=== PATIENT | female | born 1965 | race Two or more races ===

== ENCOUNTER 2024-05-12 02:33 | Emergency (ER) | payer MEDICAID, SELFPAY ==
[2024-05-12 02:33] VITALS: BMI 31.1
[2024-05-12 02:45] VITALS: BP 129/75; PULSE 62; RESP 18; TEMP 36.6; O2SAT 99
--- NOTE | 2024-05-12 03:06 | PD.EDRME ---
Rapid Medical Screening Exam RME Arrival date/time: 05/12/24 02:33 58 year old female present to ED for c/o abd pain for 3 days. I have greeted and performed a focused initial assessment of this patient. A comprehensive ED assessment and evaluation of the patient, analysis of all test results, and completion of the medical decision making process will be conducted by additional ED providers. Chief Complaint: Abdominal Pain Vital signs: Vital Signs Temperature 97.9 F 05/12/24 02:45 Pulse Rate 62 05/12/24 02:45 Respiratory Rate 18 05/12/24 02:45 Blood Pressure 129/75 05/12/24 02:45 Pulse Oximetry (%) 99 05/12/24 02:45 Oxygen Delivery Method Room Air 05/12/24 02:45
[2024-05-12] MEDS: Milk Of Magnesia Susp 30 ML UDC PO (03:24)
[2024-05-12 03:40] LABS: Basophils # (Auto) 0.1 Thou/mm3 (0.0-0.2); Basophils % (Auto) 1 % (0-2.5); Eosinophils # (Auto) 0.1 Thou/mm3 (0.0-0.5); Eosinophils % (Auto) 2 % (0-10); Hematocrit 36.9 % (36.0-46.0); Immature Granulocytes % (Auto) 0 % (0-0); Immature Granulocytes Auto 0.03 Thou/mm3 (0.00-0.00); Lymphocytes # (Auto) 3.5 Thou/mm3 (1.0-4.8); Lymphocytes % (Auto) 50 % (10-50); Mean Corpuscular HGB Conc 32.5 g/dl (31.0-37.0); Mean Corpuscular Hemoglobin 26.8 pg (25.0-35.0); Mean Corpuscular Volume 82 fL (80-100); Monocytes # (Auto) 0.4 Thou/mm3 (0.0-0.8); Monocytes % (Auto) 5 % (0-12); Neutrophils % (Auto) 42 % (37-80); Nucleated Red Blood Cell % 0 /100 WBC (0); Platelet Count 368 Thou/mm3 (140-440); RDW Standard Deviation 42.4 fL (36.4-46.3); Red Blood Count 4.48 Miln/mm3 (4.00-5.20); White Blood Count 7.1 Thou/mm3 (3.6-11.0)
[2024-05-12 03:40] LABS: Collection Type, Urine Voided; RBC,Urine 0 /hpf (0-3); Squamous Epithelial Cell,Urine 0 /hpf (0-5)
[2024-05-12 03:42] LABS: Bilirubin,Urine Negative (Negative); Blood,Urine Negative (Negative); Clarity,Urine Clear (Clear/Hazy); Color,Urine Colorless (Lt Yel-Yel); Culture Indicated,Urine Not Indicated; Glucose, Urine Negative (Negative); Ketones,Urine Negative (Negative); Leukocyte Esterase,Urine Negative (Negative); Nitrite,Urine Negative (Negative); Protein,Urine Negative (Neg - Trace); Specific Gravity,Urine 1.008 (1.001-1.035); Urobilinogen,Urine Negative mg/dL (0.0-1.0); WBC,Urine 3 /hpf (0-5)
--- NOTE | 2024-05-12 03:51 | XR_ITS ---
Examination: CT abdomen with intravenous contrast CT pelvis with intravenous contrast 2-D coronal reconstructions 2-D sagittal reconstructions Date and time of exam:May 12, 2024 at 0515 hrs. Indications: Abdominal pain constipation beginning 5 days ago. CTDI: vol (mGy) 9.21 DLP: (mGycm) 496 Technique: Multiple axial sections of the abdomen and pelvis have been obtained. 64 slice high-resolution scanner used. 3 mm axial sections have been obtained, post intravenous injection 60 cc [id number] 2-D sagittal, coronal reconstructions obtained. Low dose protocols were performed. One or more of the following dose reduction techniques were used; automated exposure control, adjustment of the mA and/or KV according to patient size, use of iterative reconstruction technique. Findings: Multiple hepatic cysts No biliary tract dilatation Spleen is not enlarged Contracted gallbladder. No pancreatic mass or pancreatic edema. No renal or ureteral calculi, no hydronephrosis Aorta normal size. Normal appendix No bowel obstruction No pelvic mass Urinary bladder intact Moderate osteopenia Impression: No acute process in the abdomen or pelvis
[2024-05-12 04:01] LABS: Alanine Aminotransferase 14 U/L (10-49); Albumin/Globulin Ratio 1.6 (1.2-2.2); Alkaline Phosphatase 77 U/L (46-116); Anion Gap 6 (7-16); Aspartate Amino Transferase 16 U/L (0-34); BUN/Creatinine Ratio 20 Ratio (12-20); Bilirubin,Total 0.4 mg/dL (0.3-1.2); Blood Urea Nitrogen 16 mg/dL (9-23); Calcium 9.5 mg/dL (8.3-10.6); Calcium (Corrected) 9.5 mg/dL (8.5-10.1); Carbon Dioxide 30.7 mMol/L (20.0-31.0); Chloride 104 mMol/L (98-107); Creatinine (Component) 0.8 mg/dL (0.6-1.3); Estimated Creatinine Clearance 75.5 mL/min (>60); Globulin 3.1 gm/dL (2.3-3.5); Glucose 100 mg/dL (74-106); Lipase 53 U/L (12-53); Osmolality,Calculated 282 (275-295); Potassium 3.8 mMol/L (3.4-5.1); Sodium 141 mMol/L (136-145); Total Protein 8.1 gm/dL (5.7-8.2); eGFR > 60 See Note
[2024-05-12 04:56] VITALS: BP 132/81; PULSE 60; RESP 16; TEMP 36.7; O2SAT 98
--- NOTE | 2024-05-12 05:00 | PC.NURSE ---
Pt appears in NAD. Resting quietly. States pain is very mild.
--- NOTE | 2024-05-12 05:59 | PRELIM_ITS ---
CT scan of the abdomen and pelvis with intravenous contrast (axial sections with sagittal and coronal reformats) May 12, 2024 at 0515 hoursClinical History: Abdominal pain for 3 days.Comparison: No prior study is available for comparison. Findings:Clear lung bases. Hepatic cysts up to 4 cm. Gallbl adder, spleen, adrenal glands, pancreas and kidneys are unremarkable. The appendix is normal, best se en on image 129. The urinary bladder is normal. No free intraperitoneal air or fluid. There is no adn exal cyst or mass. No acute osseous process. Lumbar spondylosis with posterior disc protrusions at mu ltiple levels.Impression: No acute processes of the abdomen or pelvis. Report Electronically Signed B y: Cristiano Diaz 05/12/2024 5:59:16 AM [EST]
[2024-05-12 06:17] VITALS: BP 124/84; PULSE 61; RESP 18; TEMP 36.7; O2SAT 100
--- NOTE | 2024-05-12 07:15 | PD.EDABDPN ---
ED Abdominal Pain RME/HPI General Chief Complaint: Abdominal Pain Stated complaint: CONSTIPATION X5DAYS Time seen by provider: 05/12/24 03:28 Arrival date/time: 05/12/24 02:33 RME / HPI RME / HPI narrative: 05/12/24 02:33 58 year old female present to ED for c/o abd pain for 3 days. I have greeted and performed a focused initial assessment of this patient. A comprehensive ED assessment and evaluation of the patient, analysis of all test results, and completion of the medical decision making process will be conducted by additional ED providers. DR. RIA WILLIS ED EVALUATION 58 year old female presents to the ED for complaint of constipation for 5 days accompanied by abdominal pain beginning 3 days ago. States pain is located all throughout abdomen, described as aching in sensation, rating as mild-moderate. Reportedly took Purelax at home without improvement, prompting ED visit. Mentioned she is chronically constipated and at baseline has 0-1 bowel movements a day. Denies fevers, chills, nausea, vomiting, or urinary symptoms. Related Data Previous Rx's ?Medication ?Instructions ?Recorded magnesium hydroxide 400 mg/5 mL 20 ml PO TID PRN constipation #355 05/12/24 oral suspension (Milk of Magnesia) mL Allergies Allergy/AdvReac Type Severity Reaction Status Date / Time No Known Allergies Allergy Verified 09/02/23 15:12 Review of Systems Review of Systems Narrative Review of Systems: GEN: No fever, no chills, no weight loss EYES: No discharge, no visual changes, no pain HEENT: No ear pain, no congestion, no sore throat PULM: No shortness of breath, no cough, no congestion CV: No chest pain, no dyspnea on exertion, no palpitations GI: No nausea, no vomiting, no diarrhea, + pain, + constipation : No frequency, no urgency and no dysuria MUSC/SKEL No joint pain, no back pain SKIN: No rash NEURO: No weakness, no headache Past Medical History Past Medical History NEUROLOGIC: Negative Neurological Disorders or Seizures CARDIAC: Negative Cardiac Disorders or Congestive Heart Failure RESPIRATORY: Negative Chronic Obstructive Pulmonary Disease (COPD) or Asthma GASTROINTESTINAL: Negative Gastrointestinal Disorders GENITOURINARY: Negative Genitourinary Disorders or Renal Disease REPRODUCTIVE: Positive Previous Pregnancies MUSCULOSKELETAL: Negative Musculoskeletal Disorders ENDOCRINE: Positive Endocrine Disorders and Hyperthyroidism; Negative Diabetes Mellitus Type 1 or Diabetes Mellitus Type 2 HEMATOLOGIC: Negative Anemia, Sickle Cell Disease or Clotting Problems OTHER HISTORY: Positive Falls; Negative Autoimmune Disease, Blood Transfusions, Blood Transfusion Reaction, Anesthesia Reactions, Clostridium Difficile or Cancer Family History FAMILY HISTORY: Negative Family Cardiac Disorders Surgical History SURGICAL: Positive Lumpectomy and Tubal Ligation; Negative Joint Replacement Social History SMOKING STATUS: Never smoker ED Exam Narrative Physical exam: GENERAL APPEARANCE: Well hydrated, well nourished, in no acute distress. VITALS: All vitals were reviewed and the pulse ox is 100% on room air which is normal according to my interpretation. HEENT: Normocephalic, atramatic, EOMI. Moist oromucosa. No jaundice NECK: Supple. CARDIOVASCULAR: Heart regular without S3-S4 or murmur. No rubs or gallops. LUNGS/CHEST: Clear to auscultation bilaterally. Normal inspection. ABDOMEN: Soft, nontender, with normal bowel sounds. No pulsatile masses. No rebound, rigidity, or guarding. No incarcerated hernia. Normal inspection and palpation. EXTREMITIES: Normal inspection and palpation. SKIN: Warm and dry without rashes. Normal inspection. MUSCULOSKELETAL: Normal inspection. No gross deformity, full ROM all extremities NEURO: Alert and oriented x3. Cranial nerves II through XII grossly intact. PSYCHIATRIC: Normal mood and affect. No psychosis Course Quality Measures none Orders Category Date Time Status CT Screening NOW Care 05/12/24 03:51 Active Insert IV NOW Care 05/12/24 04:[address] abdomen pelvis w con Stat Exams 05/12/24 03:51 Taken CBC Stat Lab 05/12/24 03:20 Completed CMP [Comprehensive Metabolic Panel] Stat Lab 05/12/24 03:20 Completed Lipase Stat Lab 05/12/24 03:20 Completed UA, C/S IF [Urinalysis, C/S if Indicated] Stat Lab 05/12/24 03:23 Completed Urine Culture Stat Lab 05/12/24 03:23 Received Milk Of Magnesia Susp [Mom Susp] Med 05/12/24 03:07 Discontinued 30 ml PO X1 ONE Vital Signs Vital signs: Vital Signs Temperature 97.9 F 05/12/24 02:45 Pulse Rate 62 05/12/24 02:45 Respiratory Rate 18 05/12/24 02:45 Blood Pressure 129/75 05/12/24 02:45 Pulse Oximetry (%) 99 05/12/24 02:45 Oxygen Delivery Method Room Air 05/12/24 02:45 Abdominal Pain MDM MDM Narrative MDM Narrative:: Patient's chief complaint is constipation. She been having that for long time. Her past medical history significant for some sort of thyroid problem but she does not know exactly what. Also history of constipation and liver cyst CBC negative. CMP negative. Lipase negative. UA is negative. CT abdomen and pelvic reviewed by and interpreted by me as follow: No bowel obstruction. No significant constipation. Some stool in the ascending colon but no rectal impaction. No air-fluid level. Normal liver except for cysts. Normal kidneys. Normal pancreas. No free fluid. No free air. Abdominal exam is benign. There is no surgical abdomen at this time. Patient data External records reviewed:: [facility] previous records (I reviewed ED visit 09/02/2023) Clinical information provided by:: patient Social determinants that could affect healthcare access:: none Patient has the following chronic illnesses:: Some sort of thyroid problem, known liver cyst Chronic constipation How is presenting disease/condition affected by chronic disease/condition?: uneffected by Evaluation data The following diagnostics were reviewed and interpreted by me:: lab results and radiology exam(s) Lab and/or radiology exams considered but not ordered:: None Interpretation Summary: Ordering Physician: Date of Service: Procedure(s): Accession Number(s): cc: ~ CT scan of the abdomen and pelvis with intravenous contrast (axial sections with sagittal and coronal reformats) May 12, 2024 at 0515 hours Clinical History: Abdominal pain for 3 days. Comparison: No prior study is available for comparison. Findings: Clear lung bases. Hepatic cysts up to 4 cm. Gallbladder, spleen, adrenal glands, pancreas and kidneys are unremarkable. The appendix is normal, best seen on image 129. The urinary bladder is normal. No free intraperitoneal air or fluid. There is no adnexal cyst or mass. No acute osseous process. Lumbar spondylosis with posterior disc protrusions at multiple levels. Impression: No acute processes of the abdomen or pelvis. Report Electronically Signed By: Cristiano Diaz 05/12/2024 5:59:16 AM [EST] Medications / Prescriptions Medications or Prescriptions considered but not ordered:: None Medication administrations:: Medication Administration History Discontinued Medications Magnesium Hydroxide (Milk Of Magnesia Susp 30 Ml Udc) 30 ml PO X1 ONE; Protocol Stop: 12/17/24 03:08 Last Admin: 05/12/24 03:24 Dose: 30 ml Documented By: CB See above Consultations Consultation(s) initiated? (list below): No Diagnosis Differential diagnosis abdominal pain: abdominal pain, constipation and small bowel obstruction Most likely diagnosis given after review of the tests above:: Constipation Admission Indicated Admission indicated?: not indicated Admission Request Was there a request for admission?: No Disposition Plan Disposition Plan: Discharge Discharge Attestation Discharge Attestation: The patient and all family members were given an opportunity to ask questions and understood the discharge instructions. Discharge instructions specifically effects, indications for sooner follow up or return to the emergency department, and the expected course of current diagnosis. Patient condition: Stable Discharge Plan Plan Patient Disposition: HOME (Self Care) Disposition Comment: Stable for DC Prescriptions/Referrals Prescriptions/Med Rec: New magnesium hydroxide [Milk of Magnesia] 400 mg/5 mL suspension 20 ml PO TID PRN (Reason: constipation) Qty: 355 0RF Referrals: David Angel MD [Primary Care Provider] - In 1 week Problem List Clinical Impression: Constipation Patient/Caregiver Discharge Instructions Education Materials: ED Constipation (Adult) Additional Instructions: Medication as prescribed for constipation. Follow-up with your medical doctor in 3 days. Return to nearest ER if condition worsens or if new symptoms develop especially fever Print Language: Welsh Stand Alone Forms: Sheila Award Info., Patient Portal Info Letter
[2024-05-12 08:00] VITALS: BP 102/62; PULSE 67; RESP 17; TEMP 36.6; O2SAT 98
== END 2024-05-12 08:43 | disposition home or self-care (01) ==
PROVIDERS: Physician Assistant; Emergency Provider Emergency Medicine; PCP Family Medicine
DX: K59.09 Other constipation (principal)
CPT/HCPCS: 36415; 74177; 80053; 81001; 83690; 85025; 87086; 99285; A4649; Q9967; A9270

== ENCOUNTER → 2024-06-25 | Outpatient (CLI) | payer MEDICAID, SELFPAY ==
[2024-06-24 11:42] LABS: Basophils # (Auto) 0.1 Thou/mm3 (0.0-0.2); Basophils % (Auto) 2 % (0-2.5); Eosinophils # (Auto) 0.1 Thou/mm3 (0.0-0.5); Eosinophils % (Auto) 3 % (0-10); Hematocrit 38.3 % (36.0-46.0); Hemoglobin 12.2 g/dL (12.0-16.0); Immature Granulocytes % (Auto) 1 % (0-0); Immature Granulocytes Auto 0.03 Thou/mm3 (0.00-0.00); Lymphocytes # (Auto) 2.5 Thou/mm3 (1.0-4.8); Lymphocytes % (Auto) 51 % (10-50); Mean Corpuscular HGB Conc 31.9 g/dl (31.0-37.0); Mean Corpuscular Hemoglobin 27.2 pg (25.0-35.0); Mean Corpuscular Volume 85 fL (80-100); Monocytes # (Auto) 0.3 Thou/mm3 (0.0-0.8); Monocytes % (Auto) 6 % (0-12); Neutrophils # (Auto) 1.8 Thou/mm3 (1.8-7.7); Neutrophils % (Auto) 37 % (37-80); Nucleated Red Blood Cell % 0 /100 WBC (0); Platelet Count 322 Thou/mm3 (140-440); RDW Standard Deviation 43.7 fL (36.4-46.3); Red Blood Count 4.49 Miln/mm3 (4.00-5.20); White Blood Count 4.8 Thou/mm3 (3.6-11.0)
[2024-06-24 11:59] LABS: Partial Thromboplastin Time 27.1 Seconds (22.0-36.0)
--- NOTE | 2024-06-25 09:30 | XR_ITS ---
Examination: Thyroid sonography complete TECHNIQUE: Grayscale sonographic images thyroid lobes are carful analysis Exam date and time: June 25, 2024 1028 hours INDICATIONS: History left thyroid nodule, 4.6 x 3.6 cm December 16, 2019 FINDINGS: Right thyroid 3.9 x 1.2 x 1.5 cm 7 mm upper pole cyst Left thyroid 5.8 x 3.0 x 3.9 cm Complex vascular lower pole left thyroid mass 4.5 x 3.5 x 4.3 cm IMPRESSION: Recommend repeat biopsy of vascular lower pole left thyroid mass, ultrasound-guided
--- NOTE | 2024-06-25 09:30 | XR_ITS ---
Examination: Ultrasound-guided fine needle percutaneous aspiration thyroid nodule, left thyroid nodule. Thyroid sonography, limited Exam date and time: June 25, 2024 at 1038 hours INDICATIONS: Left thyroid nodule, large in vascular on thyroid sonogram today. Technique: A timeout was completed verifying correct patient, procedure, site, positioning and special equipment if applicable. The patient was placed in supine position for the thyroid fine needle percutaneous aspiration The patient's left neck neck was prepped and draped in sterile fashion. Maximum barrier sterile technique, hand hygiene, ultrasound sterile technique. 1% lidocaine was used to anesthetize the skin and subcutaneous tissues to the patient's right thyroid nodule. Multiple fine needle aspirations were performed and multiple thyroid specimens placed in preservative according to the irm protocol. Specimens appears satisfactory. The attending radiologist was present for the entire procedure. Estimated blood loss 3 cc. The patient tolerated the procedure well and there were no complications. Impression: Successful ultrasound-guided fine-needle percutaneous aspiration thyroid nodule, left thyroid nodule.
== END | disposition home or self-care (01) ==
LOC: SDIM 09:15 → SIRX 10:15
PROVIDERS: Radiology Diagnostic Radiology; PCP Family Medicine
DX: E04.1 Nontoxic single thyroid nodule (principal); Z01.812 Encounter for preprocedural laboratory examination
CPT/HCPCS: 10005; 36415; 76536; 85025; 85610; 85730

== ENCOUNTER → 2024-09-22 | Outpatient (CLI) | payer MEDICAID, SELFPAY ==
[2024-09-21 14:01] LABS: Basophils # (Auto) 0.1 Thou/mm3 (0.0-0.2); Basophils % (Auto) 1 % (0-2.5); Eosinophils # (Auto) 0.1 Thou/mm3 (0.0-0.5); Eosinophils % (Auto) 2 % (0-10); Hematocrit 36.1 % (36.0-46.0); Hemoglobin 11.7 g/dL (12.0-16.0); Immature Granulocytes % (Auto) 1 % (0-0); Immature Granulocytes Auto 0.07 Thou/mm3 (0.00-0.00); Lymphocytes % (Auto) 47 % (10-50); Mean Corpuscular HGB Conc 32.4 g/dl (31.0-37.0); Mean Corpuscular Hemoglobin 26.8 pg (25.0-35.0); Mean Corpuscular Volume 83 fL (80-100); Monocytes # (Auto) 0.4 Thou/mm3 (0.0-0.8); Monocytes % (Auto) 6 % (0-12); Neutrophils # (Auto) 2.7 Thou/mm3 (1.8-7.7); Neutrophils % (Auto) 42 % (37-80); Nucleated Red Blood Cell % 0 /100 WBC (0); Platelet Count 304 Thou/mm3 (140-440); RDW Standard Deviation 43.4 fL (36.4-46.3); Red Blood Count 4.36 Miln/mm3 (4.00-5.20); White Blood Count 6.4 Thou/mm3 (3.6-11.0)
[2024-09-21 14:10] LABS: Partial Thromboplastin Time 26.5 Seconds (22.0-36.0); Prothrombin Time 11.3 Seconds (9.0-12.2)
--- NOTE | 2024-09-22 08:30 | XR_ITS ---
Examination: Ultrasound-guided fine needle percutaneous aspiration thyroid nodule, left thyroid nodule. Thyroid sonography, limited Exam date and time: September 22, 2024 0941 hours INDICATIONS: Thyroid sonogram June 25, 2024 complex vascular lower pole left thyroid mass 4.5 cm. Technique: A timeout was completed verifying correct patient, procedure, site, positioning and special equipment if applicable. The patient was placed in supine position for the thyroid fine needle percutaneous aspiration The patient's left neck was prepped and draped in sterile fashion. Maximum barrier sterile technique, hand hygiene, ultrasound sterile technique. 1% lidocaine was used to anesthetize the skin and subcutaneous tissues to the patient's right thyroid nodule. Multiple fine needle aspirations were performed and multiple thyroid specimens placed in preservative according to the irm protocol. Specimens appears satisfactory. The attending radiologist was present for the entire procedure. Estimated blood loss 3 cc. The patient tolerated the procedure well and there were no complications. Impression: Successful ultrasound-guided fine-needle percutaneous aspiration thyroid nodule, left thyroid nodule.
== END | disposition home or self-care (01) ==
LOC: SIRX 08:47
PROVIDERS: Radiology Diagnostic Radiology
DX: E04.1 Nontoxic single thyroid nodule (principal); Z01.812 Encounter for preprocedural laboratory examination
CPT/HCPCS: 10005; 36415; 85025; 85610; 85730

== ENCOUNTER 2025-03-16 20:44 | Emergency (ER) | payer MEDICAID, SELFPAY ==
--- NOTE | 2025-03-16 20:47 | EKG_ITS ---
[facility] Test Date: 2025-03-16 Pat Name: KARLA JOSHI Department: Room: - Gender: Female Master [place]: : [id number] Requested By: Randy Tapia Order Number: [id number] Reading MD: Randy Tapia Measurements Intervals [place] Rate: 63 P: 27 VT: 145 QRS: -6 QRSD: 88 T: -7 QT: 411 QTc: 424 Interpretive Statements SINUS RHYTHM VOLTAGE CRITERIA FOR LVH [MEETS CRITERIA IN ONE OF: R(aVL), S(V1), R(V5), R(V5/V6)+S(V1)] Compared to ECG 09/02/2023 15:39:06 T-wave abnormality no longer present /store/S0/[id number]/ecg/[id number].pdf
[2025-03-16 21:24] VITALS: BP 140/87; PULSE 72; RESP 20; TEMP 36.9; O2SAT 99
--- NOTE | 2025-03-16 21:35 | XR_ITS ---
EXAMINATION: Lateral soft tissue neck single view TECHNIQUE: Lateral soft tissue neck single view Date and time: March 16, 2025, 2136 hours INDICATIONS: Worsening throat pain 1 month. FINDINGS: Mild prevertebral soft tissue prominence Epiglottis appears thickened No distention hypopharynx No foreign body Advanced degenerative disc disease C5-C6 C6-C7 with moderate cervical spondylosis IMPRESSION: Epiglottis appears thickened, clinical correlation advised
--- NOTE | 2025-03-16 21:36 | EDRME_ITS ---
Rapid Medical Screening Exam [facility] Arrival date/time: 03/16/25 20:44 59F presents to ED with 1 month of worsening epigastric/throat pain and N/V. Patient has also had some neck swelling. Minimal relief while on omeprazole. Chief Complaint: Dental/Oral/Throat Vital signs: Vital Signs Temperature 98.5 F 03/16/25 21:24 Pulse Rate 72 03/16/25 21:24 Respiratory Rate 20 03/16/25 21:24 Blood Pressure 140/87 H 03/16/25 21:24 Pulse Oximetry (%) 99 03/16/25 21:24 Oxygen Delivery Method Room Air 03/16/25 21:24
[2025-03-16] MEDS: FAMOTIDINE 20 MG TABLET PO (21:46)
[2025-03-16] MEDS: LIDOCAINE VISCOUS 2% 15 ML UDC PO (21:46)
[2025-03-16 22:34] LABS: Basophils # (Auto) 0.1 Thou/mm3 (0.0-0.2); Basophils % (Auto) 1 % (0-2.5); Eosinophils # (Auto) 0.2 Thou/mm3 (0.0-0.5); Eosinophils % (Auto) 4 % (0-10); Hematocrit 40.0 % (36.0-46.0); Hemoglobin 12.6 g/dL (12.0-16.0); Immature Granulocytes Auto 0.03 Thou/mm3 (0.00-0.00); Lymphocytes # (Auto) 2.1 Thou/mm3 (1.0-4.8); Lymphocytes % (Auto) 39 % (10-50); Mean Corpuscular HGB Conc 31.5 g/dl (31.0-37.0); Mean Corpuscular Hemoglobin 26.6 pg (25.0-35.0); Mean Corpuscular Volume 85 fL (80-100); Monocytes # (Auto) 0.5 Thou/mm3 (0.0-0.8); Monocytes % (Auto) 10 % (0-12); Neutrophils # (Auto) 2.4 Thou/mm3 (1.8-7.7); Neutrophils % (Auto) 46 % (37-80); Nucleated Red Blood Cell # 0.00 Thou/mm3 (0.00-0.00); Nucleated Red Blood Cell % 0 /100 WBC (0); Platelet Count 297 Thou/mm3 (140-440); RDW Standard Deviation 43.7 fL (36.4-46.3); Red Blood Count 4.73 Miln/mm3 (4.00-5.20); White Blood Count 5.3 Thou/mm3 (3.6-11.0)
[2025-03-16 23:02] LABS: Alanine Aminotransferase 20 U/L (10-49); Albumin, Serum 5.0 gm/dL (3.5-5.0); Albumin/Globulin Ratio 1.9 (1.2-2.2); Alkaline Phosphatase 68 U/L (46-116); Anion Gap 11 (7-16); Aspartate Amino Transferase 23 U/L (0-34); BUN/Creatinine Ratio 12 Ratio (12-20); Bilirubin,Total 0.3 mg/dL (0.3-1.2); Blood Urea Nitrogen 12 mg/dL (9-23); Calcium 9.2 mg/dL (8.3-10.6); Calcium (Corrected) 9.2 mg/dL (8.5-10.1); Carbon Dioxide 25.7 mMol/L (20.0-31.0); Chloride 107 mMol/L (98-107); Creatinine (Component) 1.0 mg/dL (0.6-1.3); Estimated Creatinine Clearance 63.3 mL/min (>60); Globulin 2.7 gm/dL (2.3-3.5); Glucose 100 mg/dL (74-106); Lipase 42 U/L (12-53); Osmolality,Calculated 286 (275-295); Potassium 4.8 mMol/L (3.4-5.1); Sodium 144 mMol/L (136-145); Thyroid Stimulating Hormone 0.17 uIU/mL (0.55-4.78); Total Protein 7.7 gm/dL (5.7-8.2); eGFR > 60 See Note
[2025-03-17 00:22] VITALS: BP 146/92; PULSE 72; RESP 18; TEMP 37.1; O2SAT 98
--- NOTE | 2025-03-17 01:34 | EDNOTE_ITS ---
ED Dental RME/HPI General Chief complaint: Dental/Oral/Throat Stated complaint: HEARTBURN, FEELS LIKE VOMITING Arrival date/time: 03/16/25 20:44 RME / HPI RME / HPI Narrative: 03/16/25 20:44 59F presents to ED with 1 month of worsening epigastric/throat pain and N/V. Patient has also had some neck swelling. Minimal relief while on omeprazole. Dr. Estevez?s Main ED Evaluation: 59yo female presents to the ED for a chief complaint of worsening burning throat and epigastric pain for the last one month. Patient states her pain has progressively worsened despite taking Omeprazole daily for 2 weeks. Patient reports associated nausea, reporting her symptoms worsen when she lies flat or bends forwards. Denies any other associated symptoms. NKA. Related Data Previous Rx's ?Medication ?Instructions ?Recorded magnesium hydroxide 400 mg/5 mL 20 ml PO TID PRN const ipation #355 05/12/24 oral suspension (Milk of Magnesia) mL pantoprazole 40 mg tablet,delayed 40 mg PO QDAY #30 ta bs 03/17/25 release (Protonix) Allergies Allergy/AdvReac Type Severity Reaction Status Date / Time No Known Allergies Allergy Verified 09/02/23 15:12 Review of Systems Review of Systems Systems Reviewed: All systems reviewed, normal except as documented Past Medical History Past Medical History NEUROLOGIC: Negative Neurological Disorders or Seizures CARDIAC: Negative Cardiac Disorders or Congestive Heart Failure RESPIRATORY: Negative Chronic Obstructive Pulmonary Disease (COPD) or Asthma GASTROINTESTINAL: Negative Gastrointestinal Disorders GENITOURINARY: Negative Genitourinary Disorders or Renal Disease REPRODUCTIVE: Positive Previous Pregnancies MUSCULOSKELETAL: Negative Musculoskeletal Disorders ENDOCRINE: Positive Endocrine Disorders and Hyperthyroidism; Negative Diabetes Mellitus Type 1 or Diabetes Mellitus Type 2 HEMATOLOGIC: Negative Anemia, Sickle Cell Disease or Clotting Problems OTHER HISTORY: Positive Falls; Negative Autoimmune Disease, Blood Transfusions, Blood Transfusion Reaction, Anesthesia Reactions, Clostridium Difficile or Cancer Family History FAMILY HISTORY: Negative Family Cardiac Disorders Surgical History SURGICAL: Positive Lumpectomy and Tubal Ligation; Negative Joint Replacement Social History SMOKING STATUS: Never smoker ED Exam Narrative Physical exam: Generally patient is alert oriented x 3 in no obvious distress, oropharynx is moist and clear, neck shows no nuchal rigidity or bruits, heart regular rate and rhythm, lungs clear to auscultation equal bilaterally, abdomen soft bowel sounds present nondistended nontender currently, skin is warm pale and dry, neurologic exam shows [place] Coma Scale of 15 Course Quality Measures none Orders Category Date Time Status EKG (ED ONLY) *Do not use* NOW Care 03/16/25 20:47 Completed EKG (ED Only) Stat Exams 03/16/25 20:47 Draft XR soft tissue neck Stat Exams 03/16/25 21:35 Completed CBC Stat Lab 03/16/25 21:57 Completed CMP [Comprehensive Metabolic Panel] Stat Lab 03/16/25 21:57 Completed Lipase Stat Lab 03/16/25 21:57 Completed TSH [Thyroid Stimulating Hormone] Stat Lab 03/16/25 21:57 Completed Famotidine [Pepcid] Med 03/16/25 21:35 Discontinued 20 mg PO X1 ONE Lidocaine 2% Viscous [Xylocaine 2% Viscous] Med 03/16/25 21:35 Discontinued 15 ml PO X1 ONE Ondansetron Odt [Zofran Odt] Med 03/16/25 21:35 Discontinued 4 mg PO X1 ONE Vital Signs Vital signs: Vital Signs Temperature 98.5 F 03/16/25 21:24 Pulse Rate 72 03/16/25 21:24 Respiratory Rate 20 03/16/25 21:24 Blood Pressure 140/87 H 03/16/25 21:24 Pulse Oximetry (%) 99 03/16/25 21:24 Oxygen Delivery Method Room Air 03/16/25 21:24 Dental / Oral MDM Narrative MDM Narrative:: Scribe Attestation: 03/17/25 - Flor Lima am scribing for and in the presence of Dr. Estevez. I interpreted all labs. There was no significant abnormality. Patient describes gastroesophageal reflux disease. She was counseled on the need to be patient with her omeprazole. It may take as much as 1 month for her to start working. She may use [id number] Maalox or Mylanta as needed for breakthrough pain. Follow-up with her doctor. Return to ER as needed or if condition worsens. Patient data External records reviewed:: [facility] previous records (Per chart review, patient has no relevant previous ED visits.) Clinical information provided by:: patient Social determinants that could affect healthcare access:: none Patient has the following chronic illnesses:: hyperthyroidism How is presenting disease/condition affected by chronic disease/condition?: uneffected by Evaluation data The following diagnostics were reviewed and interpreted by me:: lab results, radiology exam(s) and EKG tracing(s) Lab and/or radiology exams considered but not ordered:: none Interpretation Summary: [facility] Report Signed Patient: KARLA JOSHI Record#: [id number] Birthdate: 1965 Age/Sex: 59 / F Location: [facility] Attending Dr: Ordering Physician: Randy Tapia PA-C Date of Service: 03/16/25 Procedure(s): XR soft tissue neck Accession Number(s): [id number] cc: David Angel MD; Ronny Trinh MD; Randy Tapia PA-C~ EXAMINATION: Lateral soft tissue neck single view TECHNIQUE: Lateral soft tissue neck single view Date and time: March 16, 2025, 2137 hours INDICATIONS: Worsening throat pain 1 month. FINDINGS: Mild prevertebral soft tissue prominence Epiglottis appears thickened No distention hypopharynx No foreign body Advanced degenerative disc disease C5-C6 C6-C7 with moderate cervical spondylosis IMPRESSION: Epiglottis appears thickened, clinical correlation advised Dictated By: Ronny Trinh MD Signed By: <Electronically signed by Ronny Trinh MD in OV> 03/16/25 2228 Medications / Prescriptions Medications or Prescriptions considered but not ordered:: none Medication administrations:: Medication Administration History Discontinued Medications Famotidine (Famotidine 20 Mg Tablet) 20 mg PO X1 ONE Stop: 03/16/25 21:36 Last Admin: 03/16/25 21:46 Dose: 20 mg Documented By: LISBETH Lidocaine HCl (Lidocaine Viscous 2% 15 Ml Udc) 15 ml PO X1 ONE Stop: 03/16/25 21:36 Last Admin: 03/16/25 21:46 Dose: 15 ml Documented By: LISBETH Ondansetron HCl (Ondansetron Odt 4 Mg Tabrap) 4 mg PO X1 ONE; Protocol Stop: 03/16/25 21:36 Last Admin: 03/16/25 21:47 Dose: Not Given Documented By: LISBETH Non-Admin Reason: Patient Refused see above Consultations Consultation(s) initiated? (list below): No Diagnosis Dental Differential Diagnosis: other (See MDM) Most likely diagnosis given after review of the tests above:: see clinical impression below Admission Indicated Admission indicated?: not indicated Admission Request Was there a request for admission?: No Disposition Plan Disposition Plan: Discharge Discharge Attestation Discharge Attestation: The patient and all family members were given an opportunity to ask questions and understood the discharge instructions. Discharge instructions specifically effects, indications for sooner follow up or return to the emergency department, and the expected course of current diagnosis. Patient condition: Stable Discharge Plan Plan Patient Disposition: HOME (Self Care) Prescriptions/Referrals Prescriptions/Med Rec: New pantoprazole [Protonix] 40 mg tablet,delayed release (DR/EC) 40 mg PO QDAY Qty: 30 0RF No Action magnesium hydroxide [Milk of Magnesia] 400 mg/5 mL suspension 20 ml PO TID PRN (Reason: constipation) Qty: 355 0RF Referrals: David Angel MD [Primary Care Provider, Family Practice] - In 1 week Problem List Clinical Impression: Chronic gastroesophageal reflux disease Patient/Caregiver Discharge Instructions Education Materials: ED GERD (Adult) Additional Instructions: Avoid hot spicy greasy fatty foods. Protonix as prescribed. You may use [id number] Maalox or Mylanta as needed for breakthrough pain. Print Language: Lithuanian Stand Alone Forms: Sheila Award Info., Patient Portal Info Letter
[2025-03-17 02:12] VITALS: BP 120/82; PULSE 61; RESP 18; TEMP 36.9; O2SAT 98
== END 2025-03-17 02:14 | disposition home or self-care (01) ==
PROVIDERS: Physician Assistant; Emergency Provider Emergency Medicine; PCP Family Medicine
DX: K21.9 Gastro-esophageal reflux disease without esophagitis (principal)
CPT/HCPCS: 36415; 70360; 80053; 83690; 84443; 85025; 93005; 99283; J3490; A9270